=== PATIENT | male | born 1950 | race Caucasian/White ===

== ENCOUNTER 2019-02-10 13:47 | Emergency (ER) | payer MEDICARE, BC ==
--- NOTE | 2019-02-10 13:58 | Emergency Department Record ---
History of Present Illness - General Chief complaint: Extremity Problem Stated complaint: INFECTION ON BIG TOE Time Seen by Provider: 02/10/19 13:57 Source: Patient Mode of Arrival: Ambulatory Limitations: No limitations - History of Present Illness Initial comments: 68 yo male presents with great toe redness. He states it started with a callous over two to three weeks ago. Gradually he has developed some redness. No current pus. The roof of the callous had already come off. No pain. He has neuropathy. He has full ROM. No abnormal warmth or coolness. He has a history of ROMANO with a liver thrombosis. He saw his transplant doctor today. He states that check up war routine and no concerns. His doctor saw his foot and instructed him to go to the ER. 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 MD Complaint: Joint pain -: Week(s) (2+) Location: Right (Great toe) Radiation: Distal Quality: Other (Not painful) Consistency: Constant Improves with: Nothing Worsens with: Nothing Associated Symptoms: Denies other symptoms - Related Data Home Medications Medication Instructions Recorded Confirmed Last Taken Amlodipine Besylate 5 mg PO DAILY 02/10/19 02/10/19 Unknown Cholecalciferol (Vitamin D3) 1,000 iu PO DAILY 02/10/19 02/10/19 Unknown [Vitamin D3] Ferrous Sulfate [Iron] 65 mg PO DAILY 02/10/19 02/10/19 Unknown Levothyroxine Sodium 200 mcg PO DAILY 02/10/19 02/10/19 Unknown Lisinopril 20 mg PO DAILY 02/10/19 02/10/19 Unknown Nadolol 40 mg PO DAILY 02/10/19 02/10/19 Unknown Omeprazole 40 mg PO DAILY 02/10/19 02/10/19 Unknown Pravastatin Sodium [Pravachol] 20 mg PO DAILY 02/10/19 02/10/19 Unknown Sitagliptin Phosphate [Januvia] 50 mg PO DAILY 02/10/19 02/10/19 Unknown Tramadol HCl 50 mg PO DAILY 02/10/19 02/10/19 Unknown Warfarin Sodium 5 mg PO DAILY 02/10/19 02/10/19 Unknown Previous Rx's Medication Instructions Recorded Doxycycline Hyclate 100 mg PO BID #14 cap 02/10/19 Allergies Allergy/AdvReac Type Severity Reaction Status Date / Time No Known Drug Allergies Allergy Verified 02/10/19 14:02 Review of Systems Constitutional: Denies: Chills, Fever, Malaise, Weakness Eyes: Denies: Eye discharge ENT: Denies: Congestion, Throat pain Respiratory: Denies: Cough, Dyspnea Cardiovascular: Denies: Chest pain, Syncope Endocrine: Denies: Fatigue Gastrointestinal: Denies: Abdominal pain, Diarrhea, Nausea, Vomiting Genitourinary: Denies: Dysuria, Frequency, Hematuria Musculoskeletal: Denies: Arthralgia, Joint swelling, Myalgia, Neck pain Skin: Reports: As per HPI, Change in color Neurological: Reports: Numbness (chronic neuropathy). Denies: Confusion Psychiatric: Denies: Anxiety Hematological/Lymphatic: Denies: Easy bleeding, Easy bruising Physical Exam - General General Appearance: Alert, Oriented x3, Cooperative, No acute distress Limitations: No limitations - Head Head exam: Atraumatic - Eye Eye exam: Normal appearance, PERRL. negative: Conjunctival injection, Scleral icterus - ENT ENT exam: Normal exam Ear exam: Normal external inspection Nasal Exam: Normal inspection Mouth exam: Normal external inspection - Neck Neck exam: Normal inspection - Respiratory Respiratory exam: Normal lung sounds bilaterally. negative: Respiratory distress - Cardiovascular Cardiovascular Exam: Regular rate, Normal rhythm, Normal heart sounds Peripheral Pulses: 2+: Dorsalis Pedis (R) - Extremities Extremities exam: Full ROM. negative: Normal inspection, Joint swelling, Tenderness Image of Feet: 1 - opened callous, mild erythema, no drainage, mild great toe erythema, full ROM, 2 - erythema - Back Back exam: Denies: CVA tenderness (R), CVA tenderness (L) - Neurological Neurological exam: Alert, Oriented X3 - Psychiatric Psychiatric exam: Normal affect, Normal mood - Skin Skin exam: Erythema Course - Reevaluation(s) Reevaluation #1: 02/10/19 14:45 The patient has a recording engineer. He has a follow up appointment February 23 He will call today while waiting to see if a sooner appointment is available 02/10/19 14:56 The area of redness was marked I discussed antibiotic dosing while on Coumadin with Pharmacy. The recommendation is stay with normal dosing and recheck more frequently. He will be brought back Wednesday02/10/19 15:21 T XR he labs were reviewed Chronic anemia and thrombocytopenia INR is 2.5 CR is 1.6 XR reviewed. No findings to suggest osteomylitis. Degenerative changes noted CRP is 0.72 Given the mild physical finding, no fever, no pain, minimal elevation in the CRP I recommend DC home with a 24 recheck in the ED He was advised on his coumadin/PT plan for follow up 02/10/19 15:53 If improving consider switch to Keflex as an outpatient as well. Medical Decision Making - Lab Data Result diagrams: 02/10/19 14:45 02/10/19 14:45 Disposition Disposition: Discharge Clinical Impression: Cellulitis Qualifiers: Site of cellulitis: unspecified site Qualified Code(s): L03.90 - Cellulitis, unspecified Disposition: Home, Self-Care Condition: (1) Good Instructions: Cellulitis (ED) Additional Instructions: Avoid any pressure from shoes on the great toe area Return tomorrow for a recheck and repeat antibiotics Return immediately if you have any fever, pain, swelling, or spreading redness beyond the area marked Call to confirm follow up with your Computer Discovery Teacher You will need to monitor your PT/INR closely while on antibiotics. Recheck your PT/INR for your Coumadin on Wednesday. Prescriptions: Doxycycline Hyclate 100 mg PO BID #14 cap Forms: Patient Portal Access Time of Disposition: 15:25 Quality - Quality Measures Quality Measures: N/A - Blood Pressure Screening Does Patient Have Any of the Following: No Blood Pressure Classification: Normal BP Reading Systolic Measurement: 105 Diastolic Measurement: 52 Screening for High Blood Pressure: < Normal BP, F/U Not Required > [G8783]
[2019-02-10] MEDS ORDERED: DOXYCYCLINE HYCLATE 100 MG CAPSULE PO ONE (14:18)
[2019-02-10] MEDS ORDERED: CEFTRIAXONE 1GM/50ML BAG 1 GM/50 ML BAG IVPB ONE (14:47)
[2019-02-10 14:55] LABS: BASO % 0.2 % (0-6); EOS % 1.9 % (0-6); GRAN % 76.2 % (47-80); HEMATOCRIT 32.9 % (42.0-52.0); HEMOGLOBIN 10.4 gm/dl (14.0-18.0); LYMPH % 11.9 % (16-45); MEAN CELL VOLUME 100.3 fl (81-97); MEAN CORPUSCULAR HEMOGLOBIN 31.7 pg (27-33); MEAN CORPUSCULAR HGB CONC 31.6 g/dl (32-36); MEAN PLATELET VOLUME 11.2 fl (7.4-10.4); MONO % 9.8 % (0-9); PLATELET COUNT 72 K/uL (130-400); RED BLOOD COUNT 3.28 M/uL (4.40-5.70); RED CELL DISTRIBUTION WIDTH 15.6 % (11.5-14.5); WHITE BLOOD COUNT W/O DIFF 4.2 K/uL (4.2-12.2)
[2019-02-10 15:09] LABS: INR 2.4; PROTHROMBIN TIME (PATIENT) 23.9 SECONDS (9.5-12.1)
[2019-02-10 15:11] LABS: CREATININE 1.6 mg/dL (0.7-1.2)
[2019-02-10 15:16] LABS: C-REACTIVE PROTEIN 0.72 mg/dL (<0.5)
--- NOTE | 2019-02-14 12:11 | RADIOLOGY REPORT ---
STUDY: Right great toe. CLINICAL HISTORY: Great toe infection. TECHNIQUE: Three views of the right great toe are obtained. COMPARISON: None. FINDINGS: There is normal bone mineralization. No acute fracture nor dislocation. There are mild arthritic changes of the 1st MTP and IP joints. There is chronic-appearing deformity of the 3rd metatarsal head, likely posttraumatic. There is a normal variant versus posttraumatic ossicle at the dorsomedial margin of the 1st IP joint causing mild deformity of the adjacent soft tissues. There is soft tissue lucency in this region raising possibility of ulcer. There is, however, no focal osteopenia or bone erosion. No suspicious periosteal reaction. There are linear calcific densities noted along the medial and lateral aspects of the great toe proximally, likely vascular calcification. IMPRESSION: 1. No convincing radiographic evidence of acute osteomyelitis. 2. Mild degenerative changes. 3. Chronic deformity of the 3rd metatarsal head. 4. Developmental versus posttraumatic ossicle involving the dorsomedial margin of the 1st IP joint. Subtle lucency at this level may relate to ulceration. MTDD
== END 2019-02-10 15:51 | disposition home or self-care (01) ==
LOC: ER 13:47
DX: L03.031 Cellulitis of right toe (principal); R79.82 Elevated C-reactive protein (CRP); D69.6 Thrombocytopenia, unspecified; D53.9 Nutritional anemia, unspecified; Z79.01 Long term (current) use of anticoagulants
CPT/HCPCS: 99284 ×2; 96374; 85025; 85610; 86140; 80048; 73630; J0696; 73660

== ENCOUNTER 2019-02-11 13:24 | Emergency (ER) | payer MEDICARE, BC ==
--- NOTE | 2019-02-11 14:08 | Emergency Department Record ---
History of Present Illness - General Chief Complaint: Wound, check Stated Complaint: RECHECK INFECTED TOE Time Seen by Provider: 02/11/19 14:08 Source: Patient, RN notes reviewed - History of Present Illness Initial Comments: wound is looking better and less redness going up the leg Onset/Timin -: Days(s) Returns Today for: Wound recheck Symptoms Since Prior Visit: No new symptoms - Related Data Previous Rx's Medication Instructions Recorded Doxycycline Hyclate 100 mg PO BID #14 cap 02/10/19 Cephalexin [Keflex] 500 mg PO QID 10 Days #40 cap 02/11/19 Allergies Allergy/AdvReac Type Severity Reaction Status Date / Time No Known Drug Allergies Allergy Verified 02/10/19 14:02 Travel Screening - Travel/Exposure Within Last 30 Days Have you traveled within the last 30 days?: No - Travel/Exposure Within Last Year Have you traveled outside the [place] in the last year?: No - Additonal Travel Details Have you been exposed to anyone with a communicable illness?: No - Travel Symptoms Symptom Screening: None Review of Systems Reviewed: No additional complaints except as noted below Constitutional: Reports: As per HPI. Denies: Chills, Fever, Malaise, Night sweats, Weakness, Weight change Eyes: Reports: As per HPI. Denies: Eye discharge, Eye pain, Photophobia, Vision change ENT: Reports: As per HPI. Denies: Congestion, Dental pain, Ear pain, Epistaxis, Hearing loss, Throat pain Respiratory: Reports: As per HPI. Denies: Cough, Dyspnea, Hemoptysis, Stridor, Wheezes Cardiovascular: Reports: As per HPI. Denies: Arrhythmia, Chest pain, Dyspnea on exertion, Edema, Murmurs, Orthopnea, Palpitations, Paroxysmal nocturnal dyspnea, Rheumatic Fever, Syncope Endocrine: Reports: As per HPI. Denies: Fatigue, Heat or cold intolerance, Po lydipsia, Polyuria Gastrointestinal: Reports: As per HPI. Denies: Abdominal pain, Constipation, Diarrhea, Hematemesis, Hematochezia, Melena, Nausea, Vomiting Genitourinary: Reports: As per HPI. Denies: Dysuria, Frequency, Hematuria, Incontinence, Retention, Testicular pain, Testicular mass, Urgency Musculoskeletal: Reports: As per HPI. Denies: Arthralgia, Back pain, Gout, Joint swelling, Myalgia, Neck pain Skin: Reports: As per HPI. Denies: Bruising, Change in color, Change in hair/nails, Lesions, Pruritus, Rash Neurological: Reports: As per HPI. Denies: Abnormal gait, Confusion, Headache, Numbness, Paresthesias, Seizure, Tingling, Tremors, Vertigo, Weakness Psychiatric: Reports: As per HPI. Denies: Anxiety, Auditory hallucinations, D epression, Homicidal thoughts, Suicidal thoughts, Visual hallucinations Hematological/Lymphatic: Reports: As per HPI. Denies: Anemia, Blood Clots, Easy bleeding, Easy bruising, Swollen glands Past Medical History - SOCIAL HISTORY Smoking Status: Never smoker Alcohol Use: None Drug Use: None - RESPIRATORY Hx Respiratory Disorders: No - CARDIOVASCULAR Hx Cardio Disorders: No Hx Hypertension: Yes - NEURO Hx Neuro Disorders: No - GI Hx GI Disorders: Yes Hx Diverticulitis: Yes Hx Liver Disease: Yes (ROMANO) - Hx Genitourinary Disorders: No - ENDOCRINE Hx Endocrine Disorders: Yes Hx Diabetes: Yes (Type II) Hx Thyroid Disease: Yes - MUSCULOSKELETAL Hx Musculoskeletal Disorders: No - PSYCH Hx Psych Problems: No - HEMATOLOGY/ONCOLOGY Hx Hematology/Oncology Disorders: No Family Medical History Any Significant Family History?: No Hx Cancer: Brother/Sister Physical Exam - General General Appearance: Alert, Oriented x3, Cooperative, No acute distress - Head Head exam: Normal inspection - Eye Eye exam: Normal appearance, PERRL Pupils: Normal accommodation - ENT ENT exam: Normal exam, Mucous membranes moist, Normal external ear exam, Normal orophraynx, TM's normal bilaterally Ear exam: Normal external inspection. negative: External canal tenderness Nasal Exam: Normal inspection. negative: Discharge, Sinus tenderness Mouth exam: Normal external inspection, Tongue normal Teeth exam: Normal inspection. negative: Dental caries Throat exam: Normal inspection. negative: Tonsillar erythema, Tonsillar exudate - Neck Neck exam: Normal inspection, Full ROM. negative: Tenderness - Respiratory Respiratory exam: Normal lung sounds bilaterally. negative: Respiratory distress - Cardiovascular Cardiovascular Exam: Regular rate, Normal rhythm, Normal heart sounds - GI/Abdominal GI/Abdominal exam: Soft, Normal bowel sounds. negative: Tenderness - Rectal Rectal exam: Deferred - exam: Deferred - Extremities Extremities exam: Normal inspection, Full ROM, Normal capillary refill. negative: Tenderness - Back Back exam: Reports: Normal inspection, Full ROM. Denies: Muscle spasm, Rash noted, Tenderness - Neurological Neurological exam: Alert, Normal gait, Oriented X3, Reflexes normal - Psychiatric Psychiatric exam: Normal affect, Normal mood - Skin Skin exam: Other (less redness and great toe not as swollen and ulcer is drying up ) Course Vital Signs 02/11/19 13:42 Temperature 97.6 F Pulse Rate 60 Respiratory 16 Rate Blood Pressure 132/68 Pulse Ox 99 - Reevaluation(s) Reevaluation #1: follow up with store facility technician in 2-3 days or return to ED for a recheck 02/11/19 14:36 Medical Decision Making - Lab Data Result diagrams: 02/11/19 14:17 02/11/19 14:17 Disposition Clinical Impression: Cellulitis Qualifiers: Site of cellulitis: extremity Site of cellulitis of extremity: toe Laterality: left Qualified Code(s): L03.032 - Cellulitis of left toe Disposition: Home, Self-Care Condition: (1) Good Instructions: Wound Healing and Your Diet (ED), Cellulitis (ED) Additional Instructions: follow up with family Dr in 2 days Prescriptions: Cephalexin [Keflex] 500 mg PO QID 10 Days #40 cap Forms: Patient Portal Access Time of Disposition: 14:31 Quality - Quality Measures Quality Measures: N/A - Blood Pressure Screening Does Patient Have Any of the Following: No Blood Pressure Classification: Pre-Hypertensive BP Reading Systolic Measurement: 132 Diastolic Measurement: 68 Screening for High Blood Pressure: < Pre-Hypertensive BP, F/U Documented > [G8950] Pre-Hypertensive Follow-up Interventions: Referral to alternative/primary care provider.
[2019-02-11] MEDS ORDERED: CEFTRIAXONE SODIUM 1 GM in 0.9 % SODIUM CHLORIDE 100ML 100 ML IVPB ONE (14:20)
[2019-02-11 14:31] LABS: ABSOLUTE NEUTROPHIL COUNT 2.89; BASO % 0.5 % (0-6); EOS % 2.7 % (0-6); GRAN % 70.7 % (47-80); HEMATOCRIT 31.4 % (42.0-52.0); HEMOGLOBIN 9.9 gm/dl (14.0-18.0); LYMPH % 15.6 % (16-45); MEAN CORPUSCULAR HEMOGLOBIN 31.8 pg (27-33); MEAN CORPUSCULAR HGB CONC 31.5 g/dl (32-36); MEAN PLATELET VOLUME 10.5 fl (7.4-10.4); MONO % 10.5 % (0-9); PLATELET COUNT 69 K/uL (130-400); RED BLOOD COUNT 3.11 M/uL (4.40-5.70); RED CELL DISTRIBUTION WIDTH 15.7 % (11.5-14.5); WHITE BLOOD COUNT W/O DIFF 4.1 K/uL (4.2-12.2)
[2019-02-11 14:40] LABS: CREATININE 1.5 mg/dL (0.7-1.2)
[2019-02-11 14:43] LABS: INR 2.3; PROTHROMBIN TIME (PATIENT) 22.5 SECONDS (9.5-12.1)
== END 2019-02-11 15:10 | disposition home or self-care (01) ==
LOC: ER 13:24
DX: L03.032 Cellulitis of left toe (principal)
CPT/HCPCS: 80048; 85025; 85610; 96365; 99282